=== PATIENT | female | born 1975 | race Caucasian/White ===

== ENCOUNTER 2016-07-20 21:04 | Emergency (ER) | payer OTHER ==
[2016-07-20 21:40] LABS: MANUAL DIFF NEEDED? NO
[2016-07-20 21:45] LABS: BASO% 0.7 % (0.0-0.8); EOS# 0.15 X1000 (0.0-0.7); EOS% 3.3 % (0.0-10.0); HEMATOCRIT 38.5 % (37.0-47.0); HEMOGLOBIN 13.3 g/dL (12.0-16.0); IMM GRAN# 0.05 X1000 (0.0-0.04); IMM GRAN% 1.1 % (0.0-0.5); LYMPH# 1.32 X1000 (1.2-3.4); LYMPH% 29.1 % (20.5-51.1); MCH 30.4 PG (27-31); MCHC 34.5 g/dL (33-37); MCV 87.9 FL (81-99); MONO# 0.55 X1000 (0.11-0.59); MONO% 12.1 % (1.7-9.3); MPV 9.8 FL (7.4-10.4); NEUT% 53.7 % (42.2-75.2); PLT 410 X1000 (130-400); RBC 4.38 XMIL (4.2-5.4)
[2016-07-20 22:02] LABS: AGAP 12; ALBUMIN 3.6 g/dL (3.5-5.0); ALKALINE PHOSPHATASE 80 U/L (32-104); AMYLASE 31 U/L (20-200); BUN 12 mg/dL (8-22); CALCIUM 9.1 mg/dL (8.8-10.2); CHLORIDE 103 mmol/L (98-107); COSMO 280; GOT 16 U/L (10-30); GPT 11 U/L (10-36); LIPASE 18 U/L (13-60); SODIUM 141 mmol/L (136-145); TCO2 26 mmol/L (25-35); TOTAL BILIRUBIN 0.17 mg/dL (0.20-1.00); TOTAL PROTEIN 6.3 g/dL (6.3-8.3)
[2016-07-20 23:00] LABS: URINE MICRO REVIEW NEEDED? NO; URINE SOURCE CLEAN CATCH
[2016-07-20 23:03] LABS: BILIRUBIN URINE NEGATIVE (NEGATIVE); BLOOD URINE NEGATIVE (NEGATIVE); COLOR YELLOW; GLUCOSE URINE NEGATIVE (NEGATIVE); LEUKOCYTES URINE NEGATIVE (NEGATIVE); NITRITE URINE NEGATIVE (NEGATIVE); PH URINE 6.5; PROTEIN URINE NEGATIVE (NEGATIVE); SP GRAVITY URINE 1.018; TURBIDITY URINE CLEAR (CLEAR); UR EPITHELIAL CELLS >10 /HPF (<10); URINE BACTERIA 2+ /HPF; URINE CULTURE NEEDED? YES; URINE RBC <10 /HPF (<10); URINE WBC <10 /HPF (<10); UROBILINOGEN URINE NORMAL (NORMAL)
--- NOTE | 2016-07-20 23:08 | PROVIDER DOCUMENTATION ---
HPI-Abdominal Pain/GI Problem - General Chief Complaint: N/V/D Stated Complaint: N/V/D, HELMS, BODY SORENESS Time Seen by Provider: 07/20/16 23:02 Source: patient Allergies/Adverse Reactions: Patient Allergies Allergy/AdvReac Type Severity Reaction Status Date / Time No Known Allergies Allergy Verified 06/22/16 18:53 Home Medications: Home Medication List Medication Instructions Recorded Confirmed Last Taken Type Duloxetine [Cymbalta] 60 mg PO QHS 01/15/15 07/20/16 07/19/16 History Gabapentin [Neurontin] 600 mg PO TID 08/30/15 07/20/16 07/19/16 History Atenolol 25 mg PO BID 10/22/15 07/20/16 07/20/16 10:00 History Quetiapine Fumarate [Seroquel] 25 mg PO HS 06/22/16 07/20/16 07/19/16 History Butalbital/APAP/Caffeine [Fioricet] 1 each PO Q4H PRN PRN #7 tablet 07/21/16 Unknown Rx Ondansetron Odt [Zofran 8Mg Odt] 8 mg PO Q8H PRN PRN #20 tablet 07/21/16 Unknown Rx Promethazine [Phenergan] 25 mg PO Q6H PRN PRN #20 tablet 07/21/16 Unknown Rx - History of Present Illness-ABD Nature of Presenting Problems: 40 y/o F c/o N/V/D, dizzy, HELMS, body aches x 2 days. Pt states that vomit x 6, diarrhea x 10. Denies influenza vaccine. Reports many sick contacts. Tried dramamine, tylenol, advil, with no results. Denies any abd. pain. States fever of 102F. States HELMS is 6/10. Review of Systems - Adult - REVIEW OF SYSTEMS - ADULT Constitutional: reports: fever. denies: chills Eyes: reports: no symptoms reported. denies: blurred vision, double vision Ears, Nose, Mouth & Throat: reports: no symptoms reported. denies: ear pain, nose pain, throat pain Cardiovascular: reports: no symptoms reported. denies: chest pain, palpitations Respiratory: reports: see HPI, cough. denies: shortness of breath, wheezing Gastrointestinal: reports: see HPI, diarrhea, nausea, vomiting. denies: abdominal pain, constipation Genitourinary: reports: no symptoms reported. denies: dysuria, frequency Musculoskeletal: reports: see HPI, muscle aches. denies: joint pain, joint swelling Integumentary: reports: no symptoms reported. denies: nail changes, rash Neurological: reports: see HPI, dizziness/vertigo, headache/migraines. denies: numbness, paresthesia Psychiatric: reports: no symptoms reported Endocrine: reports: no symptoms reported. denies: cold intolerance, heat intolerance Hematologic/Lymphatic: reports: no symptoms reported. denies: easy bruising, prolonged bleeding Allergic/Immunologic: reports: no symptoms reported All Other Systems: Reviewed and Negative Past History - Adult - PAST MEDICAL HISTORY-ADULT Review of Records: reports: Nursing Assessment Review, Medications Reviewed Respiratory: reports: other (sarcoidosis) Musculoskeletal: reports: arthritis, chronic pain (ddd), fibromyalgia Neurological: reports: Seizures/Epilepsy Psychiatric: reports: anxiety, depression - PRIOR SURGERIES/PROCEDURES Surgical/Procedure History: reports: hysterectomy, BTL, tonsillectomy, gastric bypass (lapband) - IMMUNIZATION STATUS Childhood Immunizations: See Nurse Assessment Flu Vaccine: See Nurse Assessment - SOCIAL HISTORY Smoking: denies Alcohol Use Frequency: never Physical Exam-General - PHYSICAL EXAM-ADULT Initial Vital Signs Reviewed: Yes - CONSTITUTIONAL General Appearance: alert, mild distress, obese - EYES Eyes: PERRL/EOMI, pink conjunctivae - HEAD, EARS, NOSE, MOUTH & THROAT HENMT: normocephalic/atraumatic, moist mucous membranes, pharynx normal - NECK Neck: supple, normal inspection. negative: lymphadenopathy - RESPIRATORY Respiratory: lungs clear, normal breath sounds. negative: crackles, rales, rhonchi, stridor, wheezing - CARDIOVASCULAR Cardiovascular: regular rate, rhythm. negative: bradycardia, tachycardia - GASTROINTESTINAL (ABDOMEN) Abdominal Exam: normal bowel sounds, non tender, soft. negative: distended, guarding, rigid - MUSCULOSKELETAL Back Exam: normal inspection, no CVA tenderness Extremity: normal gait - SKIN Integumentary: normal color, normal turgor, warm/dry - NEUROLOGIC Neurologic: [place] [place] II-XII nml as tested. negative: aphasia, EOM palsy, facial droop, focal weakness, motor weakness - PSYCHIATRIC Psych/Mental Status: normal mood/affect, normal thought content, normal thought process, oriented x 3 Progress - PLAN OF CARE/RESULTS Progress/Plan/Lab Results: Laboratory Tests 07/20/16 07/20/16 07/20/16 21:13 21:21 21:21 WBC 4.53 L RBC 4.38 Hgb 13.3 Hct 38.5 MCV 87.9 MCH 30.4 MCHC 34.5 RDW Std Deviation 13.0 Plt Count 410 H MPV 9.8 Immature Gran % (Auto) 1.1 H Neut % (Auto) 53.7 Lymph % (Auto) 29.1 [place] % (Auto) 12.1 H Eos % (Auto) 3.3 Baso % (Auto) 0.7 Immature Gran # (Auto) 0.05 H Neut # (Auto) 2.43 Lymph # (Auto) 1.32 [place] # (Auto) 0.55 Eos # (Auto) 0.15 Baso # (Auto) 0.03 Sodium 141 Potassium 4.0 Chloride 103 Carbon Dioxide 26 Anion Gap 12 BUN 12 Creatinine 0.7 Estimated GFR/1.73 m2 > 60 BUN/Creatinine Ratio 17 Glucose 82 Calculated Osmolality 280 Calcium 9.1 Total Bilirubin 0.17 L AST 16 ALT 11 Alkaline Phosphatase 80 Total Protein 6.3 Albumin 3.6 Globulin 2.7 Albumin/Globulin Ratio 1.3 Amylase 31 Lipase 18 Urine Source CLEAN CATCH Urine Color YELLOW Urine Turbidity CLEAR Urine pH 6.5 Ur Specific [place] 1.018 Urine Protein NEGATIVE Ur Glucose (Stick) NEGATIVE Ur Ketones (Stick) NEGATIVE Urine Blood NEGATIVE Urine Nitrite NEGATIVE Urine Bilirubin NEGATIVE Urobilinogen Dipstick NORMAL Urine Leukocytes NEGATIVE Urine WBC (Auto) <10 Urine RBC (Auto) <10 U Epithel Cells (Auto) >10 A Urine Bacteria (Auto) 2+ Laboratory Tests 07/20/16 07/20/16 07/20/16 21:13 21:21 21:21 WBC 4.53 L RBC 4.38 Hgb 13.3 Hct 38.5 MCV 87.9 MCH 30.4 MCHC 34.5 RDW Std Deviation 13.0 Plt Count 410 H MPV 9.8 Immature Gran % (Auto) 1.1 H Neut % (Auto) 53.7 Lymph % (Auto) 29.1 [place] % (Auto) 12.1 H Eos % (Auto) 3.3 Baso % (Auto) 0.7 Immature Gran # (Auto) 0.05 H Neut # (Auto) 2.43 Lymph # (Auto) 1.32 [place] # (Auto) 0.55 Eos # (Auto) 0.15 Baso # (Auto) 0.03 Sodium 141 Potassium 4.0 Chloride 103 Carbon Dioxide 26 Anion Gap 12 BUN 12 Creatinine 0.7 Estimated GFR/1.73 m2 > 60 BUN/Creatinine Ratio 17 Glucose 82 Calculated Osmolality 280 Calcium 9.1 Total Bilirubin 0.17 L AST 16 ALT 11 Alkaline Phosphatase 80 Total Protein 6.3 Albumin 3.6 Globulin 2.7 Albumin/Globulin Ratio 1.3 Amylase 31 Lipase 18 Urine Source CLEAN CATCH Urine Color YELLOW Urine Turbidity CLEAR Urine pH 6.5 Ur Specific [place] 1.018 Urine Protein NEGATIVE Ur Glucose (Stick) NEGATIVE Ur Ketones (Stick) NEGATIVE Urine Blood NEGATIVE Urine Nitrite NEGATIVE Urine Bilirubin NEGATIVE Urobilinogen Dipstick NORMAL Urine Leukocytes NEGATIVE Urine WBC (Auto) <10 Urine RBC (Auto) <10 U Epithel Cells (Auto) >10 A Urine Bacteria (Auto) 2+ Orders Category Date Time Status FLAT/UPRIGHT ABD/1 VIEW CHEST [RAD] Stat Exams 07/20/16 23:45 Completed AMYLASE [CHEM] Stat Lab 07/20/16 21:21 Completed CBC WITH ELECTRONIC DIFF [HEME] Stat Lab 07/20/16 21:21 Completed COMPREHENSIVE METABOLIC PANEL [CHEM] Stat Lab 07/20/16 21:21 Completed INFLUENZA SCREEN A/B Stat Lab 07/20/16 22:05 Completed LIPASE [CHEM] Stat Lab 07/20/16 21:21 Completed URINALYSIS W/POSS RFLX CULT [URINALYSIS] Stat Lab 07/20/16 21:13 Completed URINE CULTURE [RM] Routine Lab 07/20/16 23:53 Completed Butalbital/APAP/Caffeine [Fioricet] Med 07/21/16 00:17 Discontinued 1 each PO NOW ONE Ondansetron Odt [Zofran Odt] Med 07/21/16 00:17 Discontinued 4 mg PO NOW ONE Vital Signs Temp Pulse Resp BP Pulse Ox 07/21/16 00:58 97.9 F 84 16 101/66 100 07/20/16 21:10 98.2 F 91 H 18 109/70 100 No Known Allergies Allergy (Verified 06/22/16 18:53) Duloxetine [Cymbalta] 60 mg PO QHS 01/15/15 Gabapentin [Neurontin] 600 mg PO TID 08/30/15 Atenolol 25 mg PO BID 10/22/15 Quetiapine Fumarate [Seroquel] 25 mg PO HS 06/22/16 Butalbital/APAP/Caffeine [Fioricet] 1 each PO Q4H PRN PRN #7 tablet 07/21/16 Ondansetron Odt [Zofran 8Mg Odt] 8 mg PO Q8H PRN PRN #20 tablet 07/21/16 Promethazine [Phenergan] 25 mg PO Q6H PRN PRN #20 tablet 07/21/16 I&O 07/21/16 07/22/16 07/23/16 06:59 06:59 06:59 Output Total 40 Balance -40 Laboratory 07/20/16 07/20/16 07/20/16 21:21 21:21 21:13 WBC 4.53 L RBC 4.38 Hgb 13.3 Hct 38.5 MCV 87.9 MCH 30.4 MCHC 34.5 RDW Std Deviation 13.0 Plt Count 410 H MPV 9.8 Immature Gran % (Auto) 1.1 H Neut % (Auto) 53.7 Lymph % (Auto) 29.1 [place] % (Auto) 12.1 H Eos % (Auto) 3.3 Baso % (Auto) 0.7 Immature Gran # (Auto) 0.05 H Neut # (Auto) 2.43 Lymph # (Auto) 1.32 [place] # (Auto) 0.55 Eos # (Auto) 0.15 Baso # (Auto) 0.03 Sodium 141 Potassium 4.0 Chloride 103 Carbon Dioxide 26 Anion Gap 12 BUN 12 Creatinine 0.7 Estimated GFR/1.73 m2 > 60 BUN/Creatinine Ratio 17 Glucose 82 Calculated Osmolality 280 Calcium 9.1 Total Bilirubin 0.17 L AST 16 ALT 11 Alkaline Phosphatase 80 Total Protein 6.3 Albumin 3.6 Globulin 2.7 Albumin/Globulin Ratio 1.3 Amylase 31 Lipase 18 Urine Source CLEAN CATCH Urine Color YELLOW Urine Turbidity CLEAR Urine pH 6.5 Ur Specific [place] 1.018 Urine Protein NEGATIVE Ur Glucose (Stick) NEGATIVE Ur Ketones (Stick) NEGATIVE Urine Blood NEGATIVE Urine Nitrite NEGATIVE Urine Bilirubin NEGATIVE Urobilinogen Dipstick NORMAL Urine Leukocytes NEGATIVE Urine WBC (Auto) <10 Urine RBC (Auto) <10 U Epithel Cells (Auto) >10 A Urine Bacteria (Auto) 2+ Discussed pt with Dr. desai; he agreed with tx plan. Discussed results and d/c plan with pt. - XRAY 1 XRAY Study: Chest, Abdomen XRAY Interpretation: NAD, per Dr. Desai Departure - Departure Time of Disposition Order: 00:12 DIAGNOSIS: Gastroenteritis Headache Qualifiers: Headache type: unspecified Headache chronicity pattern: acute headache Intractability: not intractable Qualified Code(s): R51 - Headache Disposition: HOME 01 Certified Medical Emergency: Emergent Condition: Stable Additional Instructions: Take medications as directed. Drink plenty of fluids. Tylenol and/or motrin for fever/body aches. ED Follow Up Instructions: You have been treated by a care provider in the Emergency Department. These instructions are being provided to you so you can have an understanding of how to care for yourself upon discharge. Upon discharge from the Emergency Department, you are responsible for making arrangements for follow-up care by a physician of your choice. Take all prescribed medications as directed. Return to the Emergency Department immediately for any new or worsening symptoms. You may call the Physician Referral phone number at [phone] to obtain a list of Physicians who are taking new patients. Prescriptions: Butalbital/APAP/Caffeine [Fioricet] 1 each PO Q4H PRN PRN #7 tablet PRN Reason: Headache Promethazine [Phenergan] 25 mg PO Q6H PRN PRN #20 tablet PRN Reason: Nausea Ondansetron Odt [Zofran 8Mg Odt] 8 mg PO Q8H PRN PRN #20 tablet PRN Reason: Nausea Referrals: Terence Torrez MD [Primary Care Provider] - Trinh Head MD [STAFF PHYSICIAN] - Instructions: Migraine Headache, [id number], Viral Gastroenteritis, Easy-to- Read Attestation - Physician/ JAVI Attestation Patient care was provided by Advanced Practice Provider:: Yes Advanced Practice Provider:: Annie Riley Advanced Practice Provider documentation review:: The Mid-level provider documentation, treatment plan and medical decision making was reviewed by the physician who agrees with all treatment and medical decision making by the [facility].
[2016-07-21] MEDS ORDERED: ZOFRAN ODT PO ONE (00:17)
[2016-07-21] MEDS ORDERED: FIORICET PO ONE (00:17)
[2016-07-21 00:59] VITALS: BP 101/66
--- NOTE | 2016-07-21 09:59 | Diag Imaging Result Document ---
PROCEDURE NAME: FLAT/UPRIGHT ABD/1 VIEW CHEST - 07/20/2016 FRONTAL CHEST X-RAY AND 2 VIEWS OF THE ABDOMEN, 07/21/2016: COMPARISON: 04/06/2016, 06/22/2016. FINDINGS: The chest is clear. There is a stable lap band in good position. No bowel obstruction or free air. There is a fairly large amount of frothy gastric contents in the gastric portion above the lap band. This may indicate slow transit of ingested material. The appearance is nonspecific. IMPRESSION: Nonspecific findings.
== END 2016-07-21 00:58 | disposition home or self-care (01) ==
LOC: ED 21:04
DX: K52.9 Noninfective gastroenteritis and colitis, unspecified (principal); R51 Headache; R11.2 Nausea with vomiting, unspecified; R19.7 Diarrhea, unspecified; R42 Dizziness and giddiness; R50.9 Fever, unspecified; R05 Cough; M79.1 Myalgia; Z79.899 Other long term (current) drug therapy; M19.90 Unspecified osteoarthritis, unspecified site; G89.29 Other chronic pain; M79.7 Fibromyalgia; R56.9 Unspecified convulsions; F41.9 Anxiety disorder, unspecified; F32.9 Major depressive disorder, single episode, unspecified; E66.9 Obesity, unspecified; Z98.84 Bariatric surgery status
CPT/HCPCS: 74022; 80053; 81001; 82150; 83690; 85025; 87088; 87804; 99284